=== PATIENT | female | born 1965 | race Caucasian/White ===

== ENCOUNTER 2017-03-27 12:03 | Emergency (ER) | payer BC ==
[~2017-03-27] VITALS: Ht 157.5 cm; Wt 63.5 kg
[~2017-03-27 12:03] MED LIST: CETI10TA; DARV100T; IBUP800T; LYRI75CA; PRESTIQ; SYNT125T
[2017-03-27] MEDS ORDERED: ESTR625TA PO (12:51)
[2017-03-27] MEDS ORDERED: TOPI25TA5 PO (12:51)
[2017-03-27] MEDS ORDERED: CITA40TA4 PO (12:51)
[2017-03-27] MEDS ORDERED: SUMA100T2 PO (12:51)
[2017-03-27] MEDS ORDERED: CLAR10CA3 PO (12:51)
[2017-03-27] MEDS ORDERED: OMEP40CA2 PO (12:51)
[2017-03-27 13:43] LABS: BASO % 0.5 % (0.0-1.0); EOS # 0.2 K/mm3 (0.0-0.50); EOS % 1.6 % (0.0-3.0); LARGE UNSTAINED CELL # 0.3 K/mm3 (0.0-0.4); LARGE UNSTAINED CELL % 2.5 % (0.0-4.0); LYMPH # 4.1 K/mm3 (1.5-4.5); LYMPH % 40.2 % (24.0-44.0); MEAN CORPUSCULAR HEMOGLOBIN 33.6 pg (27.0-33.0); MEAN CORPUSCULAR HGB CONC 33.8 g/dl (32.0-36.5); MEAN CORPUSCULAR VOLUME 99.4 fl (80.0-96.0); MONO # 0.4 K/mm3 (0.0-0.8); MONO % 3.9 % (0.0-5.0); NEUTROPHILS # 5.2 K/mm3 (1.8-7.7); NEUTROPHILS % 51.3 % (36.0-66.0); PLATELET COUNT, AUTOMATED 265 k/mm3 (150-450); RED CELL DISTRIBUTION WIDTH 12.5 % (11.5-14.5); WHITE BLOOD COUNT 10.2 K/mm3 (4.0-10.0)
[2017-03-27] MEDS ORDERED: ASPIRIN 81 MG CHEW TABLET PO ONE (13:45)
[2017-03-27 13:51] LABS: ALBUMIN 3.3 GM/DL (3.2-5.2); ALBUMIN/GLOBULIN RATIO 0.79 (1.00-1.93); ALKALINE PHOSPHATASE 55 U/L (45-117); ALT/SGPT 15 U/L (12-78); ANION GAP 8 MEQ/L (8-16); AST/SGOT 10 U/L (15-37); BILIRUBIN,DIRECT < 0.1 MG/DL (0.0-0.2); BILIRUBIN,TOTAL 0.2 MG/DL (0.2-1.0); BLOOD UREA NITROGEN 14 MG/DL (7-18); CALCIUM LEVEL 8.4 MG/DL (8.5-10.1); CARBON DIOXIDE LEVEL 26 MEQ/L (21-32); CHLORIDE LEVEL 106 MEQ/L (98-107); CREATININE FOR GFR 1.01 MG/DL (0.55-1.02); GLOMERULAR FILTRATION RATE > 60.0 (>51); GLUCOSE, FASTING 81 MG/DL (70-105); POTASSIUM SERUM 3.5 MEQ/L (3.5-5.1); SODIUM LEVEL 140 MEQ/L (136-145); TOTAL PROTEIN 7.5 GM/DL (6.4-8.2)
--- NOTE | 2017-03-27 14:37 | REP ---
CHEST, SINGLE VIEW: COMPARISON: 11/23/2014 There is no evidence of acute infiltrate. No pleural effusion is seen. The heart is normal in size. The mediastinal silhouette is unremarkable. The visualized osseous structures are intact. IMPRESSION: No acute pulmonary disease. Signed by Michael Cabrera MD 03/28/2017 04:43 P
--- NOTE | 2017-03-27 14:39 | REP ---
REASON: Dyspnea and cough. COMPARISON: 04/07/2016 from [facility]. The lack of intravenous contrast decreases the sensitivity of the exam. Limited evaluation of the mediastinum and pulmonary mike show no gross abnormalities or significant changes from the prior exam. There are no pleural or pericardial effusions. The imaged upper abdomen and imaged osseous structures are within normal limits and unchanged. Evaluation of the lung davis show stable chronic changes without evidence of an acute abnormal nodule, mass or opacity. IMPRESSION: Stable CT examination of the chest. There is no evidence of acute disease. Signed by Madhav Berg DO 03/27/2017 02:47 P
[2017-03-27 14:56] VITALS: BP 125/65
--- NOTE | 2017-03-28 09:15 | ECGEPIP ---
Stationary ECG Study [facility] - ED Test Date: 2017-03-27 Pat Name: JAKOB NELSON Department: Room: - Gender: F [employer] Inspector: ct : 1965 Requested By: Jordan Rodríguez Order Number: [id number] Reading MD: Lacey Gonzalez Measurements Intervals [place] Rate: 55 P: 51 MT: 139 QRS: 8 QRSD: 74 T: 45 QT: 491 QTc: 471 Interpretive Statements SINUS BRADYCARDIA WITH OCCASIONAL VENTRICULAR PREMATURE COMPLEXES PROLONGED QT INTERVAL CLINICAL CORRELATION NO PRIOR FOR COMPARISON Electronically Signed On 03-28-2017 9:15:37 EDT by Lacey Gonzalez
== END 2017-03-27 15:55 | disposition home or self-care (01) ==
LOC: M ED 13:58
DX: R06.02 Shortness of breath (principal); R42 Dizziness and giddiness; E03.9 Hypothyroidism, unspecified; F32.9 Major depressive disorder, single episode, unspecified; M54.9 Dorsalgia, unspecified; G43.909 Migraine, unspecified, not intractable, without status migrainosus; Z87.891 Personal history of nicotine dependence; Z79.899 Other long term (current) drug therapy; Z79.82 Long term (current) use of aspirin; Z88.1 Allergy status to other antibiotic agents; Z88.5 Allergy status to narcotic agent; Z88.2 Allergy status to sulfonamides; Z88.8 Allergy status to other drugs, medicaments and biological substances

== ENCOUNTER → 2017-04-02 | Outpatient (CLI) | payer BC ==
[~2017-04-02] MED LIST changes: +CITA40TA4 PO; +CLAR10CA3 PO; +ESTR625TA PO; +OMEP40CA2 PO; +SUMA100T2 PO; +TOPI25TA5 PO
[2017-04-04 00:06] LABS: Lyme Disease IgG/IgM Antibodie <0.91 ISR (0.00-0.90); Lyme Disease IgM Ab Quantitati <0.80 index (0.00-0.79)
== END ==
LOC: M LAB 08:26
PROVIDERS: ATTEND Internal Medicine Cardiovascular Disease
DX: I49.9 Cardiac arrhythmia, unspecified (principal)

== ENCOUNTER 2017-08-23 10:52 | Emergency (ER) | payer BC ==
[~2017-08-23] VITALS: Ht 157.5 cm; Wt 65.9 kg
[~2017-08-23 10:52] MED LIST changes: +TOPI25TA10 PO; -TOPI25TA5 PO
[2017-08-23] MEDS ORDERED: IRON65TA PO (11:05)
[2017-08-23] MEDS ORDERED: GABA-282 (11:05)
[2017-08-23] MEDS ORDERED: TOPA1TAB PO (11:05)
[2017-08-23] MEDS ORDERED: MAGN250T6 PO (11:05)
[2017-08-23] MEDS ORDERED: HYDROmorphone HCL 1 MG/ML SYRINGE (J1170) IM ONE (12:30)
[2017-08-23] MEDS ORDERED: HYDR-3713 PO (13:06)
[2017-08-23 13:14] VITALS: BP 132/74
== END 2017-08-23 13:15 | disposition home or self-care (01) ==
LOC: M ED 10:52
DX: G89.29 Other chronic pain (principal); M54.5 Low back pain; Z79.899 Other long term (current) drug therapy; Z88.5 Allergy status to narcotic agent; Z88.1 Allergy status to other antibiotic agents; Z88.2 Allergy status to sulfonamides
CPT/HCPCS: 96372; 99282; J1170

== ENCOUNTER 2018-02-05 12:44 | Emergency (ER) | payer BC ==
[2018-02-05] MEDS: MIDAZOLAM INJ 2 MG/2 ML VIAL (J2250) IV (14:33)
[2018-02-05 14:45] LABS: BASO % 0.6 % (0.0-1.0); EOS # 0.3 10^3/uL (0.0-0.50); EOS % 4.2 % (0.0-3.0); IMMATURE GRANULOCYTE % 0.2 % (0-3.0); LYMPH # 2.6 10^3/uL (1.5-4.5); LYMPH % 40.9 % (24.0-44.0); MEAN CORPUSCULAR HEMOGLOBIN 31.9 pg (27.0-33.0); MEAN CORPUSCULAR HGB CONC 33.3 g/dl (32.0-36.5); MEAN CORPUSCULAR VOLUME 95.8 fl (80.0-96.0); MONO # 0.5 10^3/uL (0.0-0.8); MONO % 8.1 % (0.0-5.0); PLATELET COUNT, AUTOMATED 252 10^3/uL (150-450); RED BLOOD COUNT 4.07 10^6/uL (4.00-5.40); RED CELL DISTRIBUTION WIDTH 12.6 % (11.5-14.5); WHITE BLOOD COUNT 6.5 10^3/uL (4.0-10.0)
[2018-02-05] MEDS: NS 1,000 ML IV (14:50)
[2018-02-05 15:17] LABS: KETONE, URINE AUTO RFX NEGATIVE (NEGATIVE); LEUKOCYTE ESTERASE UR AUTO RFX NEGATIVE (NEGATIVE); MUCUS, URINE RFX SMALL (NEGATIVE); NITRITE, URINE AUTO RFX NEGATIVE (NEGATIVE); RBC, URINE AUTO RFX 1 /HPF (0-3); SPECIFIC GRAVITY UR AUTO RFX 1.012 (1.002-1.035); SQUAM EPITHELIAL CELL UR AURFX 2 /HPF (0-6); WBC, URINE AUTO RFX 1 /HPF (0-3)
[2018-02-05 15:39] LABS: ALBUMIN 3.3 GM/DL (3.2-5.2); ALBUMIN/GLOBULIN RATIO 0.87 (1.00-1.93); ALKALINE PHOSPHATASE 79 U/L (45-117); ALT/SGPT 14 U/L (12-78); ANION GAP 6 MEQ/L (8-16); AST/SGOT 13 U/L (7-37); BILIRUBIN,DIRECT < 0.1 MG/DL (0.0-0.2); BILIRUBIN,TOTAL 0.2 MG/DL (0.2-1.0); BLOOD UREA NITROGEN 16 MG/DL (7-18); CALCIUM LEVEL 8.4 MG/DL (8.5-10.1); CARBON DIOXIDE LEVEL 27 MEQ/L (21-32); CHLORIDE LEVEL 109 MEQ/L (98-107); CPK CREATINE PHOSPHOKINASE 46 U/L (26-192); FREE T4 0.99 NG/DL (0.76-1.46); GLOMERULAR FILTRATION RATE > 60.0 (>51); GLUCOSE, FASTING 78 MG/DL (70-100); PHOSPHORUS LEVEL 2.8 MG/DL (2.5-4.9); POTASSIUM SERUM 3.8 MEQ/L (3.5-5.1); SODIUM LEVEL 142 MEQ/L (136-145); TOTAL PROTEIN 7.1 GM/DL (6.4-8.2)
== END 2018-02-05 17:25 | disposition home or self-care (01) ==
LOC: M ED 12:44
DX: M62.838 Other muscle spasm (principal); E07.9 Disorder of thyroid, unspecified; K21.9 Gastro-esophageal reflux disease without esophagitis; G43.009 Migraine without aura, not intractable, without status migrainosus; Z79.890 Hormone replacement therapy; Z79.899 Other long term (current) drug therapy; Z88.5 Allergy status to narcotic agent; Z88.1 Allergy status to other antibiotic agents; Z88.2 Allergy status to sulfonamides; Z88.8 Allergy status to other drugs, medicaments and biological substances; Z86.2 Personal history of diseases of the blood and blood-forming organs and certain disorders involving the immune mechanism; Z86.79 Personal history of other diseases of the circulatory system; Z98.890 Other specified postprocedural states; Z87.891 Personal history of nicotine dependence
CPT/HCPCS: J2250

== ENCOUNTER 2018-03-01 13:58 | Emergency (ER) | payer BC ==
[2018-03-01 14:51] LABS: BASO % 0.4 % (0.0-1.0); EOS # 0.2 10^3/uL (0.0-0.50); HEMOGLOBIN 12.9 g/dl (12.0-15.5); IMMATURE GRANULOCYTE % 0.3 % (0-3.0); LYMPH # 3.6 10^3/uL (1.5-4.5); LYMPH % 45.1 % (24.0-44.0); MEAN CORPUSCULAR HEMOGLOBIN 31.5 pg (27.0-33.0); MEAN CORPUSCULAR HGB CONC 33.1 g/dl (32.0-36.5); MEAN CORPUSCULAR VOLUME 95.4 fl (80.0-96.0); MONO # 0.8 10^3/uL (0.0-0.8); MONO % 9.8 % (0.0-5.0); NEUTROPHILS # 3.3 10^3/uL (1.8-7.7); NEUTROPHILS % 41.4 % (36.0-66.0); PLATELET COUNT, AUTOMATED 281 10^3/uL (150-450); RED BLOOD COUNT 4.09 10^6/uL (4.00-5.40); RED CELL DISTRIBUTION WIDTH 12.4 % (11.5-14.5); WHITE BLOOD COUNT 7.9 10^3/uL (4.0-10.0)
[2018-03-01] MEDS: ASPIRIN 81 MG CHEW TABLET PO (14:57)
[2018-03-01 15:05] LABS: ANION GAP 4 MEQ/L (8-16); BLOOD UREA NITROGEN 17 MG/DL (7-18); CARBON DIOXIDE LEVEL 27 MEQ/L (21-32); CHLORIDE LEVEL 108 MEQ/L (98-107); CPK CREATINE PHOSPHOKINASE 43 U/L (26-192); GLOMERULAR FILTRATION RATE 55.1 (>51); GLUCOSE, FASTING 81 MG/DL (70-100); POTASSIUM SERUM 4.6 MEQ/L (3.5-5.1); SODIUM LEVEL 139 MEQ/L (136-145); TROPONIN I < 0.02 NG/ML (< 0.10)
[2018-03-01 15:10] LABS: CK-MB VALUE MASS < 1.0 NG/ML (<3.6); MB/CK RELATIVE INDEX 2.32 (< OR =4)
[2018-03-01 20:43] LABS: CPK CREATINE PHOSPHOKINASE 46 U/L (26-192); TROPONIN I < 0.02 NG/ML (< 0.10)
[2018-03-01 20:44] LABS: CK-MB VALUE MASS < 1.0 NG/ML (<3.6); MB/CK RELATIVE INDEX 2.17 (< OR =4)
== END 2018-03-01 21:11 | disposition home or self-care (01) ==
LOC: M ED 13:58
DX: R07.9 Chest pain, unspecified (principal); R00.1 Bradycardia, unspecified; K21.9 Gastro-esophageal reflux disease without esophagitis; G43.909 Migraine, unspecified, not intractable, without status migrainosus; Z79.899 Other long term (current) drug therapy; Z88.5 Allergy status to narcotic agent; Z88.2 Allergy status to sulfonamides; Z88.8 Allergy status to other drugs, medicaments and biological substances; Z88.1 Allergy status to other antibiotic agents
CPT/HCPCS: 71045

== ENCOUNTER → 2018-03-06 | Outpatient (CLI) | payer BC ==
[2018-03-06 13:55] LABS: BASO % 0.3 % (0.0-1.0); EOS # 0.3 10^3/uL (0.0-0.50); EOS % 3.6 % (0.0-3.0); HEMATOCRIT 35.7 % (36.0-47.0); IMMATURE GRANULOCYTE % 0.3 % (0-3.0); LYMPH % 42.8 % (24.0-44.0); MEAN CORPUSCULAR HEMOGLOBIN 32.4 pg (27.0-33.0); MEAN CORPUSCULAR HGB CONC 33.6 g/dl (32.0-36.5); MEAN CORPUSCULAR VOLUME 96.5 fl (80.0-96.0); MONO # 0.6 10^3/uL (0.0-0.8); MONO % 9.1 % (0.0-5.0); NEUTROPHILS # 3.1 10^3/uL (1.8-7.7); NEUTROPHILS % 43.9 % (36.0-66.0); PLATELET COUNT, AUTOMATED 257 10^3/uL (150-450); RED CELL DISTRIBUTION WIDTH 12.6 % (11.5-14.5)
[2018-03-06 14:25] LABS: ALBUMIN 3.4 GM/DL (3.2-5.2); ALBUMIN/GLOBULIN RATIO 0.79 (1.00-1.93); ALKALINE PHOSPHATASE 91 U/L (45-117); ALT/SGPT 17 U/L (12-78); ANION GAP 6 MEQ/L (8-16); AST/SGOT 13 U/L (7-37); BILIRUBIN,TOTAL 0.1 MG/DL (0.2-1.0); BLOOD UREA NITROGEN 14 MG/DL (7-18); C REACTIVE PROTEIN QUANTITATIV 0.58 MG/DL (0.00-0.30); CALCIUM LEVEL 8.1 MG/DL (8.5-10.1); CARBON DIOXIDE LEVEL 29 MEQ/L (21-32); CHLORIDE LEVEL 112 MEQ/L (98-107); CPK CREATINE PHOSPHOKINASE 44 U/L (26-192); GLOMERULAR FILTRATION RATE > 60.0 (>51); GLUCOSE, FASTING 92 MG/DL (70-100); POTASSIUM SERUM 3.8 MEQ/L (3.5-5.1); SODIUM LEVEL 147 MEQ/L (136-145); TOTAL 25(OH) VITAMIN D 15.4 NG/ML (30.0-100.0); TOTAL PROTEIN 7.7 GM/DL (6.4-8.2)
[2018-03-10 14:11] LABS: GAD-65 AUTOANTIBODY 11.8 U/mL (0.0-5.0)
[2018-03-10 14:11] LABS: ANGIOTENSIN 1 CONVERTING ENZYM 28 U/L (14-82); ANTI DOUBLE STRAND-DNA AB 1 IU/mL (0-9); ANTINUCLEAR ANTIBODIES DIRECT Negative (Negative); COPPER PLASMA 159 ug/dL (72-166); Lyme Disease IgG/IgM Antibodie <0.91 ISR (0.00-0.90); Lyme Disease IgM Ab Quantitati <0.80 index (0.00-0.79); METHYLMALONIC ACID 213 nmol/L (0-378); SJOGREN'S ANTI SS-A <0.2 AI (0.0-0.9); SJOGREN'S ANTI SS-B <0.2 AI (0.0-0.9)
== END ==
LOC: M LAB 13:18
DX: Z51.81 Encounter for therapeutic drug level monitoring (principal); Z79.899 Other long term (current) drug therapy; E87.8 Other disorders of electrolyte and fluid balance, not elsewhere classified; D51.1 Vitamin B12 deficiency anemia due to selective vitamin B12 malabsorption with proteinuria; D51.3 Other dietary vitamin B12 deficiency anemia; D51.8 Other vitamin B12 deficiency anemias; A69.20 Lyme disease, unspecified; M32.10 Systemic lupus erythematosus, organ or system involvement unspecified; G72.9 Myopathy, unspecified; E03.9 Hypothyroidism, unspecified
CPT/HCPCS: 82525

== ENCOUNTER → 2018-05-28 | Outpatient (REF) | payer BC | LOC: M SFHCLERA 11:38 | DX: J02.9 Acute pharyngitis, unspecified (principal) ==

== ENCOUNTER → 2018-05-28 | Outpatient (CLI) | payer BC | LOC: M LRY 11:17 | DX: R05 Cough (principal) | CPT/HCPCS: 87880 ==

== ENCOUNTER → 2018-06-22 | Outpatient (REF) | payer BC | LOC: M SFHCLERA 11:49 | DX: R49.0 Dysphonia (principal) | CPT/HCPCS: 87880 ==

== ENCOUNTER → 2018-07-03 | Outpatient (CLI) | payer BC | LOC: M RAD 12:07 | DX: Z12.31 Encounter for screening mammogram for malignant neoplasm of breast (principal); N60.31 Fibrosclerosis of right breast; N60.32 Fibrosclerosis of left breast | CPT/HCPCS: 77067 ==

== ENCOUNTER → 2023-10-07 | Outpatient (CLI) | payer MEDICARE ==
[~2023-10-07] MED LIST changes: -CITA40TA4 PO; +CITA40TA7 PO; +CYCL-707 PO; +GABA-282; +HYDR-3713 PO; +IRON65TA PO; +MAGN250T6 PO; -OMEP40CA2 PO; +OMEP40CA4 PO; +TOPA1TAB PO
== END ==
LOC: M WHC 12:06
PROVIDERS: ATTEND Nurse Practitioner Family
DX: Z12.31 Encounter for screening mammogram for malignant neoplasm of breast (principal)

== ENCOUNTER → 2024-03-20 | Outpatient (CLI) | payer MEDICARE | LOC: M WHC 10:31 | PROVIDERS: ATTEND Nurse Practitioner Family | DX: Z80.41 Family history of malignant neoplasm of ovary (principal) ==

== ENCOUNTER → 2024-10-09 | Outpatient (CLI) | payer MEDICARE ==
[~2024-10-09] MED LIST changes: +GABA-1172; -GABA-282
== END ==
LOC: M WHC 10:31
PROVIDERS: ATTEND Nurse Practitioner Family
DX: Z12.31 Encounter for screening mammogram for malignant neoplasm of breast (principal)

== ENCOUNTER → 2025-09-29 | Outpatient (CLI) | payer MEDICARE ==
[~2025-09-29] MED LIST changes: +TOPI-256 PO; -TOPI25TA10 PO
== END ==
LOC: M WHC 13:57
PROVIDERS: ATTEND Nurse Practitioner Family
DX: Z53.9 Procedure and treatment not carried out, unspecified reason (principal)

== ENCOUNTER → 2025-10-20 | Outpatient (CLI) | payer MEDICARE | LOC: M WHC 12:28 | PROVIDERS: ATTEND Nurse Practitioner Family | DX: Z12.31 Encounter for screening mammogram for malignant neoplasm of breast (principal); Z80.41 Family history of malignant neoplasm of ovary ==